=== PATIENT | male | born 2000 | race Caucasian/White ===

== ENCOUNTER 2019-08-08 12:26 | Emergency (ER) | payer OTHER, SELFPAY ==
[2019-08-08 12:28] VITALS: BP 147/97; PULSE 87; RESP 16; TEMP 37.4; O2SAT 99
--- NOTE | 2019-08-08 13:00 | ED.SKABFB ---
HPI - Skin/Abscess/Foreign Bdy General Chief complaint: Skin/Abscess/Foreign Body Stated complaint: spider bite on leg Time Seen by Provider: 08/08/19 12:33 Source: patient Mode of arrival: ambulatory Limitations: no limitations History of Present Illness HPI narrative: This is a 19 year old male that presents to the ER for possible spider bite. Reports he has been camping outside. Reports 3 days ago he noted an area of redness to his right lower leg. Reports since the area has worsened. Reports he gets some yellow drainage out of the area. Reports he is up to date on tetanus. Denies fever or vomiting. Related Data Allergies Allergy/AdvReac Type Severity Reaction Status Date / Time No Known Allergies Allergy Verified 08/08/19 12:41 Review of Systems Review of Systems: Narrative: CONSTITUTIONAL: Denies fever GASTROINTESTINAL: Denies vomiting SKIN: Reports erythema and warmth All systems reviewed & are unremarkable except as noted in HPI and below PMFSH Past Medical History Medical History (Updated 08/08/19 @ 13:06 by Laurel Jo PA-C) No significant active problems Social History Social History (Updated 08/08/19 @ 13:02 by Laurel Jo PA-C) Substance use: never Exam Narrative: Exam Narrative: GENERAL: Well-appearing, well-nourished, and in no acute distress. HEAD: Normocephalic, atraumatic. EYES: EOMI. EXTREMITIES: Normal range of motion. SKIN: Warm, dry. 3cm circular area of erythema and edema to the right lower extremity with central punctum with small amount of clear/yellow drainage. No lymphangitic streaking or fluctuance NEURO: No focal deficits. Alert and oriented x3. PSYCH: Normal mood and affect Course Vital Signs Vital signs: Vital Signs Temperature 99.4 F 08/08/19 12:28 Pulse Rate 87 08/08/19 12:28 Respiratory Rate 16 08/08/19 12:28 Blood Pressure 147/97 H 08/08/19 12:28 Pulse Oximetry 99 08/08/19 12:28 Temperature 99.4 F 08/08/19 12:28 Pulse Rate 87 08/08/19 12:28 Respiratory Rate 16 08/08/19 12:28 Blood Pressure 147/97 H 08/08/19 12:28 Pulse Oximetry 99 08/08/19 12:28 Procedures Other Procedure Procedure 1: Other Procedure: Ultrasound done by myself of area of concern. No fluid collection to suggest abscess MDM - Skin/Abscess/Foreign Bdy MDM Narrative Medical decision making narrative: Patient presents to the emergency department for cellulitis of the right lower extremity. Reports a possible spider bite. Reports he is up-to-date on tetanus. He is afebrile and nontoxic-appearing. Patient with area of erythema and edema, no fluctuance to suggest abscess. I did use ultrasound to look at the area and did not see any fluid collection. Patient given his first dose of antibiotic in the ED. He will be discharged on oral antibiotics. He was given warnings to return to the ER Critical Care Time Critical Care Time Critical Care Time: No Discharge Plan Discharge Clinical Impression: Cellulitis Qualifiers: Site of cellulitis: extremity Site of cellulitis of extremity: lower extremity Laterality: right Qualified Code(s): L03.115 - Cellulitis of right lower limb Patient Disposition: Home, Self-Care Condition: Stable Instructions: Antibiotic Form, Cellulitis (ED) Additional Instructions: Return to the emergency department if you experience fever, increasing redness and swelling of your leg, or any other symptoms that are concerning to you Take antibiotics as directed. Clean wound with mild soapy water. Apply antibiotic ointment and clean dressing area at least three times daily. Warm compresses 3 times a day for 30 minutes each Follow up with primary care for re-evaluation Prescriptions: New doxycycline monohydrate 100 mg capsule 100 mg PO BID 7 Days Qty: 14 RF: 0 Follow-up/Referrals: PHYSICIAN,USER EXPERIENCE ARCHITECT [Primary Care Provider] - Rafael Laureano MD [Physician] - 1 Week
[2019-08-08] MEDS: WATER, STERILE FOR INJECTION 10 ML VIAL XX (13:04)
[2019-08-08] MEDS: IBUPROFEN 600 MG TABLET PO (13:04)
[2019-08-08] MEDS: ceFAZolin SODIUM 1 GM VIAL IM (13:05)
[2019-08-08 13:16] VITALS: BP 160/91; PULSE 86; RESP 16; TEMP 37.2; O2SAT 99
== END 2019-08-08 13:23 | disposition home or self-care (01) ==
PROVIDERS: Emergency Provider Family Medicine
DX: L03.115 Cellulitis of right lower limb (principal)
CPT/HCPCS: 96372; 99283; A9270; J0690

== ENCOUNTER 2019-10-15 17:06 | Emergency (ER) | payer OTHER, SELFPAY ==
--- NOTE | ~2019-10-15 | CT_ITS ---
EXAMINATION: CT abdomen pelvis w con EXAM DATE: 10/15/2019 18:37 INDICATION: Right lower quadrant pain. TECHNIQUE: Spiral CT of the abdomen and pelvis was performed following intravenous injection of 100 m L Omnipaque 350. Axial, coronal and sagittal images were reviewed. The dose-length product (DLP) fo r this examination was 1481.18 mGy-cm. The exposure was tailored according to patient size (auto mA exposure control), and iterative reconstruction (ASIR) was used as additional dose reduction techniqu e. There is no prior study for comparison. FINDINGS: The liver, spleen, adrenal glands and pancreas are unremarkable. Gallbladder is unremarkab le. No biliary obstruction. Portal and splenic veins are patent. Kidneys enhance symmetrically. T here is no hydronephrosis. The prostate is unremarkable. The bladder is unremarkable. There is no retroperitoneal or pelvic lymphadenopathy. The appendix is normal. The stomach and small bowel are unremarkable. There is expected amount of c olonic stool. No free intraperitoneal gas. The heart is normal in size. There are no pericardial or pleural effusions. The lung bases are unremarkable. The bones are unremarkable. IMPRESSION: 1. No acute intra-abdominal findings. Reviewed, dictated and finalized at location G.
[2019-10-15 17:12] VITALS: BP 145/94; PULSE 80; RESP 17; TEMP 36.2; O2SAT 100
[2019-10-15 17:24] LABS: Basophils Percent Auto 0.3 % (0.2-1.2); Eosinophils Percent Auto 0.4 % (0-4.4); Hematocrit 47.5 % (42.0-52.0); Hemoglobin 16.1 g/dL (14.0-18.0); Immature Granulocyte Absolute 0.01 K/mm3 (0.00-0.031); Immature Granulocyte Percent A 0.1 % (0-0.5); Mean Corpuscular HGB Conc 33.9 g/dl (32-36); Mean Corpuscular Hemoglobin 29.8 pg (26-34); Mean Platelet Volume 10.3 fl (7.4-10.4); Monocytes Absolute Auto 0.5 K/mm3 (0.1-0.6); Monocytes Percent Auto 6.2 % (2.6-8.5); Neutrophils Absolute Auto 4.6 K/mm3 (1.3-6.7); Platelet Count Result 208 k/mm3 (150-375); Red Cell Distribution Width 12.6 % (11.5-14.5); White Blood Count 7.3 K/mm3 (4.5-10.0)
[2019-10-15 17:29] LABS: Add Urine Microscopic? NO; Appearance Urine Clear (Clear); Bilirubin Urine Negative (Negative); Blood Urine Negative (Negative); Color Urine Yellow (Yellow); Glucose Urine UA Negative (Negative); Ketones Urine Negative (Negative); Leukocyte Esterase Ur Negative LEU/UL (Negative); Nitrate Urine Negative (Negative); Protein Urine Negative (Negative); Specific Grav Ur 1.016 (1.001-1.035); Urobilinogen Urine Negative mg/dL (<2.0)
[2019-10-15 17:34] LABS: Alanine Aminotransferase 22 U/L (4-50); Albumin Level 4.6 g/dL (3.5-5.1); Alkaline Phosphatase 79 U/L (38-126); Aspartate Amino Transferase 25 U/L (17-59); Bilirubin,Total 0.8 mg/dL (0.2-1.3); Blood Urea Nitrogen 8 mg/dL (9-20); Calcium 9.1 mg/dL (8.4-10.2); Carbon Dioxide 28 mmol/L (22-30); Chloride 102 mmol/L (98-107); Estimated CRCL calculation 158 ml/min; Estimated Glomerular Filt Rate > 60; Glucose 97 mg/dL (75-110); Lipase 66 U/L (23-300); Potassium 3.9 mmol/L (3.4-5.0); Sodium 139 mmol/L (137-145)
--- NOTE | 2019-10-15 17:39 | ED.ABDPAIN ---
HPI - Abdominal Pain General Chief Complaint: Abdominal Pain <Wilian Ewing PA-C - Last Filed: 10/15/19 19:18> Stated Complaint: RLQ pain, N/D <Wilian Ewing PA-C - Last Filed: 10/15/19 19:18> Time Seen by Provider: 10/15/19 17:17 <Wilian Ewing PA-C - Last Filed: 10/15/19 19:18> Source: patient <Wilian Ewing PA-C - Last Filed: 10/15/19 19:18> Mode of arrival: ambulatory <Wilian Ewing PA-C - Last Filed: 10/15/19 19:18> Limitations: no limitations <Wilian Ewing PA-C - Last Filed: 10/15/19 19:18> History of Present Illness HPI narrative: Patient is a 19-year-old male who presents with 1 day duration of right lower quadrant abdominal pain noted as a sharp aching pain worse with activity and movement patient noticed he has had diarrhea for roughly a week denies sick contacts recent antibiotic use presents to emergency department per private vehicle in no distress patient does note that he has had some intermittent nausea patient has not taken anything for his symptoms. Patient denies similar occurrence in the past URI symptoms or sick contacts <Wilian Ewing PA-C - Last Filed: 10/15/19 19:18> Related Data Allergies/Adverse Reactions: Allergies Allergy/AdvReac Type Severity Reaction Status Date / Time No Known Allergies Allergy Verified 10/15/19 17:25 <Wilian Ewing PA-C - Last Filed: 10/15/19 19:18> Review of Systems Review of Systems: All systems reviewed & are unremarkable except as noted in HPI and below <Wilian Ewing PA-C - Last Filed: 10/15/19 19:18> PMFSH Past Medical History Medical History: Medical History No significant active problems <Wilian Ewing PA-C - Last Filed: 10/15/19 19:18> Social History Social History: Social History (Updated 10/15/19 @ 17:40 by Wilian Ewing PA-C) Tobacco type: e-cigarettes/vaping Substance use: never <Wilian Ewing PA-C - Last Filed: 10/15/19 19:18> Exam Narrative: Exam Narrative: GENERAL: Well-appearing, well-nourished, and in no acute distress. HEAD: Normocephalic, atraumatic. EYES: PERRLA and EOMI. ENT: Nares clear, no rhinorrhea or epistaxis. Mucous membranes moist. CHEST: Clear to auscultation. No respiratory distress. No wheezes rales or rhonchi HEART: Regular rate and rhythm. No murmur heard. Normal peripheral pulses. ABDOMEN: Soft, focal right lower quadrant tenderness no rebound or guarding, nondistended EXTREMITIES: Normal range of motion. No edema. SKIN: Warm, dry, no rash. NEURO: No focal deficits. Alert and oriented x3. PSYCH: Normal mood and affect. <Wilian Ewing PA-C - Last Filed: 10/15/19 19:18> Course Vital Signs Vital signs: Vital Signs Temperature 97.1 F L 10/15/19 17:12 Pulse Rate 80 10/15/19 17:12 Respiratory Rate 17 10/15/19 17:12 Blood Pressure 145/94 H 10/15/19 17:12 Pulse Oximetry 100 10/15/19 17:12 Temperature 97.1 F L 10/15/19 17:12 Pulse Rate 70 10/15/19 19:09 Respiratory Rate 18 10/15/19 19:09 Blood Pressure 145/83 H 10/15/19 19:09 Pulse Oximetry 100 10/15/19 19:09 <Wilian Ewing PA-C - Last Filed: 10/15/19 19:18> Vital Signs Temperature 97.1 F L 10/15/19 17:12 Pulse Rate 80 10/15/19 17:12 Respiratory Rate 17 10/15/19 17:12 Blood Pressure 145/94 H 10/15/19 17:12 Pulse Oximetry 100 10/15/19 17:12 Temperature 97.1 F L 10/15/19 17:12 Pulse Rate 70 10/15/19 19:09 Respiratory Rate 18 10/15/19 19:09 Blood Pressure 145/83 H 10/15/19 19:09 Pulse Oximetry 100 10/15/19 19:09 <Dorothy Lofton MD - Last Filed: 10/15/19 19:47> MDM - Abdominal Pain MDM Narrative Medical decision making narrative: Patient in the room at this time in no distress aware of case findings treatment plan and diagnosis agreeing to follow-up as directed no high risk changes in the blood work or
[2019-10-15] MEDS: FAMOTIDINE 20 MG/2 ML VIAL IV PUSH (17:54)
[2019-10-15] MEDS: ONDANSETRON INJ 4 MG/2 ML VIAL IV PUSH (17:54)
[2019-10-15] MEDS: SODIUM CHLORIDE 0.9% IV 1,000 ML 999 ML IV CONT (17:54)
[2019-10-15 19:09] VITALS: BP 145/83; PULSE 70; RESP 18; O2SAT 100
== END 2019-10-15 19:35 | disposition home or self-care (01) ==
PROVIDERS: Emergency Medicine; Emergency Provider General Practice
DX: R19.33 Right lower quadrant abdominal rigidity (principal)
CPT/HCPCS: 36415; 74177; 80053; 81003; 83690; 85025; 96361; 96365; 96375; 99284; J0131; J2405; J7030; Q9967

== ENCOUNTER 2020-02-23 22:43 | Emergency (ER) | payer OTHER, SELFPAY ==
[2020-02-23] VITALS (9 sets, daily range): BP systolic 119–155; BP diastolic 87–108; PULSE 87; RESP 18; TEMP 37.4; O2SAT 97–100
--- NOTE | 2020-02-23 22:53 | ED.FEVER ---
HPI - Fever General Chief Complaint: Fever Stated Complaint: n/v/d, fever Time Seen by Provider: 02/23/20 22:53 History of Present Illness HPI Narrative: Nausea, vomiting, diarrhea, and fever for 1 day. This is associated with mild LLQ pain. He reports that his stools are yellow. Temperture up to 100.6. No respiratory symptoms. No sick contacts. Related Data Allergies Allergy/AdvReac Type Severity Reaction Status Date / Time No Known Allergies Allergy Verified 10/15/19 17:25 Review of Systems Review of Systems: All systems reviewed & are unremarkable except as noted in HPI and below Constitutional: Constitutional: Reports fever(s) Cardiovascular: Cardiovascular: Reports chest pain Respiratory: Respiratory: Denies cough and Denies dyspnea Gastrointestinal: Gastrointestinal: Reports abdominal pain, Reports diarrhea, Reports nausea and Reports vomiting Genitourinary: Genitourinary: Denies hematuria and Denies dysuria Neurologic: Denies dizziness and Denies weakness [facility] Past Medical History Medical History (Updated 02/25/20 @ 00:00 by Background Dalissa) No significant active problems Social History Social History Tobacco type: e-cigarettes/vaping Substance use: never Exam Const: General: healthy appearing, no acute distress and alert Orientation/consciousness: patient oriented x3 HENMT: Head: normal to inspection Neck: Neck: normal visual inspection and no lymphadenopathy Chest: Chest palpation & inspection: no tenderness Resp: Effort & Inspection: normal respiratory effort Auscultation: clear to auscultation bilaterally, no rales, no rhonchi and no wheezes Cardio: Jugular venous distension: no JVD Rate: regular rate Rhythm: regular rhythm Heart sounds: no murmurs GI: Inspection: non-distended GI Palp: Yes Soft to palpation and No Tenderness to palpation present (GI) Skin: General skin exam: normal color Neuro: General: patient oriented x3 and moves all extremities Speech: normal speech Extrem: General: no edema Psych: Appearance: well kempt Affect: normal affect Course Vital Signs Vital signs: Vital Signs Temperature 37.4 C 02/23/20 22:52 Pulse Rate 87 02/23/20 22:52 Respiratory Rate 18 02/23/20 22:52 Blood Pressure 155/98 H 02/23/20 22:52 Pulse Oximetry 98 02/23/20 22:52 Temperature 37.4 C 02/23/20 22:52 Pulse Rate 69 02/24/20 01:20 Respiratory Rate 16 02/24/20 01:20 Blood Pressure 145/87 H 02/24/20 01:20 Pulse Oximetry 100 02/24/20 01:20 MDM - Fever Differential Diagnosis Differential diagnosis: Likely gastroenteritis and other Medical Records Attestation: I reviewed the patient's medical records. Lab Data Attestation: I reviewed the patient's lab results. Result diagrams: 02/23/20 23:12 02/23/20 23:12 Labs: Lab Results 02/23/20 02/23/20 02/23/20 Range/Units 23:12 23:12 23:18 WBC 9.0 (4.5-10.0) K/mm3 RBC 5.05 (4.6-6.20) M/mm3 Hgb 15.2 (14.0-18.0) g/dL Hct 44.3 (42.0-52.0) % MCV 87.7 (80-100) fl MCH 30.1 (26-34) pg MCHC 34.3 (32-36) g/dl RDW 12.3 (11.5-14.5) % Plt Count 189 (150-375) k/mm3 MPV 9.9 (7.4-10.4) fl Immature Gran % (Auto) 0.2 (0-0.5) % Neut % (Auto) 73.4 H (45.5-73.1) % Lymph % (Auto) 19.1 (18.3-44.2) % [place] % (Auto) 6.5 (2.6-8.5) % Eos % (Auto) 0.7 (0-4.4) % Baso % (Auto) 0.1 L (0.2-1.2) % Lymph # (Auto) 1.72 (0.9-3.2) K/mm3 [place] # (Auto) 0.6 (0.1-0.6) K/mm3 Eos # (Auto) 0.1 (0-0.3) K/mm3 Baso # (Auto) 0.0 (0.0-0.1) K/mm3 Abs Immat Gran (auto) 0.02 (0.00-0.031) K/mm3 Absolute Neuts (auto) 6.6 (1.3-6.7) K/mm3 Absolute Nucleated RBC 0.0 (0.0-0.012) K/mm3 Nucleated RBC % 0.0 (0.0-0.2) % Sodium 139 (137-145) mmol/L Potassium 3.4 (3.4-5.0) mmol/L Chloride 101 (98-107) mmol/L Carbon Dioxide
[2020-02-23] MEDS: ONDANSETRON INJ 4 MG/2 ML VIAL IV PUSH (23:14)
[2020-02-23] MEDS: SODIUM CHLORIDE 0.9% IV 1,000 ML 999 ML IV CONT (23:14)
[2020-02-23 23:24] LABS: Basophils Percent Auto 0.1 % (0.2-1.2); Eosinophils Absolute Auto 0.1 K/mm3 (0-0.3); Eosinophils Percent Auto 0.7 % (0-4.4); Hematocrit 44.3 % (42.0-52.0); Hemoglobin 15.2 g/dL (14.0-18.0); Immature Granulocyte Absolute 0.02 K/mm3 (0.00-0.031); Immature Granulocyte Percent A 0.2 % (0-0.5); Lymphocytes Absolute Auto 1.72 K/mm3 (0.9-3.2); Lymphocytes Percent Auto 19.1 % (18.3-44.2); Mean Corpuscular HGB Conc 34.3 g/dl (32-36); Mean Corpuscular Hemoglobin 30.1 pg (26-34); Mean Corpuscular Volume 87.7 fl (80-100); Mean Platelet Volume 9.9 fl (7.4-10.4); Monocytes Absolute Auto 0.6 K/mm3 (0.1-0.6); Monocytes Percent Auto 6.5 % (2.6-8.5); Neutrophils Absolute Auto 6.6 K/mm3 (1.3-6.7); Neutrophils Percent Auto 73.4 % (45.5-73.1); Platelet Count Result 189 k/mm3 (150-375); Red Blood Count 5.05 M/mm3 (4.6-6.20); Red Cell Distribution Width 12.3 % (11.5-14.5)
[2020-02-23 23:36] LABS: Alanine Aminotransferase 22 U/L (4-50); Albumin Level 4.1 g/dL (3.5-5.1); Alkaline Phosphatase 72 U/L (38-126); Anion Gap 6 mmol/L (8-16); Aspartate Amino Transferase 27 U/L (17-59); Bilirubin,Total 1.3 mg/dL (0.2-1.3); Blood Urea Nitrogen 12 mg/dL (9-20); Calcium 8.7 mg/dL (8.4-10.2); Carbon Dioxide 32 mmol/L (22-30); Chloride 101 mmol/L (98-107); Estimated Glomerular Filt Rate > 60; Glucose 96 mg/dL (75-110); Lipase 67 U/L (23-300); Potassium 3.4 mmol/L (3.4-5.0); Sodium 139 mmol/L (137-145)
--- NOTE | 2020-02-23 23:52 | PC.NURSE ---
Patient unable to provide a urine specimen. Patient attempted and was unsuccessful. Patient informed of need for urine sample. Patient states he will try later. ERP notified.
--- NOTE | 2020-02-24 00:55 | PC.NURSE ---
Patient given crackers and a drink for PO challenge.
[2020-02-24 00:56] VITALS: BP 145/87; PULSE 84; RESP 18; O2SAT 100
[2020-02-24 01:07] LABS: Add Urine Microscopic? YES; Appearance Urine Clear (Clear); Bilirubin Urine Negative (Negative); Blood Urine Negative (Negative); Color Urine Yellow (Yellow); Glucose Urine UA Negative (Negative); Ketones Urine Negative (Negative); Leukocyte Esterase Ur Negative LEU/UL (Negative); Mucus Urine Rare /lpf; Nitrate Urine Negative (Negative); Protein Urine 1+ mg/dL (Negative); Specific Grav Ur 1.027 (1.001-1.035); WBC Urine 0-3 /hpf
[2020-02-24 01:20] VITALS: BP 145/87; PULSE 69; RESP 16; O2SAT 100
[2020-02-24 19:58] LABS: SARS-CoV-2 RNA PCR Negative
== END 2020-02-24 01:22 | disposition home or self-care (01) ==
PROVIDERS: Emergency Provider Emergency Medicine; PCP Internal Medicine
DX: K52.9 Noninfective gastroenteritis and colitis, unspecified (principal); Z20.828 Contact with and (suspected) exposure to other viral communicable diseases
CPT/HCPCS: 36415; 80053; 81001; 83690; 85025; 87635; 96361; 96374; 99284; C9803; J2405; J7030; U0003